=== PATIENT | female | born 1975 | race Caucasian/White ===

== ENCOUNTER 2022-01-13 | Inpatient (IN) | payer MEDICAID, SELFPAY ==
[2022-01-13] VITALS (45 sets, daily range): BP systolic 92–128; BP diastolic 67–103; PULSE 64–121; RESP 14–27; TEMP 35.8–37.8; O2SAT 92–99
--- NOTE | 2022-01-13 | RT.EKG_ITS ---
APPROVED REPORT Exam: Resting ECG Reason for Exam: chest pain Patient Location: E HR:109 bpm ECG Measurements Heart Rate 109 AXIS NJ 117 P 27 QRSd 87 QRS -35 QT 182 T 27 QTc 245 Conclusion Sinus tachycardia...rate> 99 Left axis deviation...QRS axis (-30,-90) Physician: no stemi, no significant st elevation or depressions
--- NOTE | 2022-01-13 00:15 | DI.RAD_ITS ---
Exam(s) XR PORTABLE CHEST AP EXAM: XR PORTABLE CHEST AP CLINICAL HISTORY: sob, fever, r/o pneumonia. TECHNIQUE: 2D digital imaging was performed. COMPARISON: CR CHEST 2 VIEWS PA,LAT from 09/17/2009 FINDINGS: LUNGS: Clear. No pleural abnormality seen. HEART: Normal. MEDIASTINUM: Normal. OTHER FINDINGS: None. IMPRESSION: No acute pulmonary findings. DATA REPOSITORY: RADIATION DOSE DELIVERED: Total DLP
[2022-01-13] MEDS: Normal Saline 1,000 ML 1000 ML IV (01:12)
[2022-01-13] MEDS: ACETAMINOPHEN 1,000 MG/100 ML BTL 400 MG IVPB (01:12)
[2022-01-13 01:19] LABS: Abs Immature Grans 0.06 10^3/uL (0.0-0.06); Absolute Eosinophil Count 0.03 10^3/uL (0.0-0.7); Absolute Monocyte Count 0.67 10^3/uL (0.1-0.8); Basophils % 0.3; Eosinophils % 0.2; HCT 39.9 % (36.0-46.0); HGB 13.6 g/dL (11.2-15.7); Immature Grans % 0.4; Lactate 1.5 mmol/L (0.6-1.4); Lymphocytes % 4.3; MCH 30.6 pg (27.0-33.0); MCHC 34.1 % (32.0-36.0); MCV 90 fL (80-95); MPV 9.8 fL (8.0-11.0); Monocytes % 4.5; Neutrophils % 90.3; Platelet Count 254 10^3/uL (130-400); RBC 4.44 10^6/uL (3.93-5.22); RDW 12.1 % (11.7-14.6); RDW-SD 39.8 fL; WBC 14.95 10^3/uL (4.4-10.8)
[2022-01-13 01:21] LABS: Absolute Basophil Count 0.04 10^3/uL (0.0-0.2); Absolute Lymphocyte Count 0.64 10^3/uL (1.2-3.4)
[2022-01-13 01:22] LABS: ESR 11 mm/hr (0-20)
--- NOTE | 2022-01-13 01:32 | W.ED.GENAD ---
Discharge Plan Disposition Patient Disposition: 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 Patient states that since this morning she has developed shortness of breath, mild chest tightness, mild cough. She has felt chilled and fatigued. She denies any vomiting or diarrhea. She denies any dysuria. She denies any neck pain or headache. She denies any IV drug use recently. She denies any other complaints at this time. She denies any recent long trips, surgeries or procedures. She denies any focal pain or lesions. Physical exam demonstrates clear lungs, no meningeal signs. No significant lesions. Initial temperature was normal, however on my palpation she felt warm, oral temperature was procured, she does demonstrate a fever. Slight murmurs auscultated on exam. Concern is for endocarditis, UTI, or pneumonia. Influenza is on the differential as well. We will evaluate for these concerning etiologies, monitor closely and reassess. Of note the patient did have a minimally engorged tick on her ear and also 1 on her abdomen which were removed. These were dog ticks and not deer ticks. However we will add a tick and Lyme panel. 3 AM Patient's laboratory work-up demonstrates an elevated white count at 14.9, moderate left shift, no bandemia. ESR is normal, but CRP is notably elevated. Lactate minimally high at 1.5. D-dimer normal. Potassium is 2.9, pending magnesium level. Renal function normal. Troponin normal. Procalcitonin is very high at 1.7. Unsuspectingly, the patient's COVID test is returned positive, influenza is negative. Patient certainly demonstrates a mixed picture. I did contact the lab and they were not able to differentiate as to the replication level that was noted on her COVID test, so it is challenging to ascertain if this is residual from her previous infection or a new infection. While this does somewhat obfuscate the clinical picture, with the patient's elevated procalcitonin, elevated CRP, and white count, in the setting of a slight murmur, and the history of endocarditis in the past, I am still concerned for bacteremia. Patient does have dental caries and does admit to mild tooth pain, which may have certainly been a seeded source of the infection. I do feel that it is indicated to treat the patient for bacteremia at this time. We will start broad-spectrum antibiotics with atypical coverage for vancomycin, Zosyn, and doxycycline. I do feel that getting a formal echo tomorrow to evaluate for vegetations is indicated. Patient's chest x-ray is negative for acute process, and clinically she does not appear to demonstrate evidence of severe COVID-pneumonia or severe COVID in general. Patient has been rehydrated. Her potassium is being corrected with IV potassium. We are still pending urinalysis. Discussed the case with the hospitalist Dr. Fernandes, he agrees with the assessment and plan. I have extensively reviewed the treatment plan with the patient. I have addressed all patient concerns at this time. I have also discussed the plan with the admitting physician and they agree with the current assessment and plan and have agreed to assume responsibility for the patient. All parties demonstrate verbal understanding and agreement with our assessment and plan at this time. The documentation in this chart was dictated using [employer] dictation software. Please excuse any dictation errors. FINDINGS: Lungs: Unremarkable. No consolidation. Pleural spaces: Unremarkable. No pleural effusion. No pneumothorax. Heart/Mediastinum: Unremarkable. No cardiomegaly. Bones/joints: Unremarkable. IMPRESSION: No acute findings. Thank you for allowing us to participate in the care of your patient. Dictated and Authenticated by: Dustin Ordoñez MD 01/13/2022 2:00 AM Eastern Time ([place] & [place]) HPI General Date/Time Provider Initiated Documentation: 01/13/22 00:00. 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 Patient states that since this morning she has developed shortness of breath, mild chest tightness, mild cough. She has felt chilled and fatigued. She denies any vomiting or diarrhea. She denies any dysuria. She denies any neck pain or headache. She denies any IV drug use recently. She denies any other complaints at this time. She denies any recent long trips, surgeries or procedures. She denies any focal pain or lesions. Related Data Home Medications Medication Instructions Recorded Confirmed amlodipine 5 mg tablet 5 mg PO BID 01/13/22 01/13/22 clonidine HCl 0.1 mg tablet 0.1 mg PO BID 01/13/22 01/13/22 Allergies Allergy/AdvReac Type Severity Reaction Status Date / Time latex Allergy Unverified 01/13/22 00:16 General Stated Complaint: Chest Pain MASON: 3 Review of Systems All systems reviewed & are unremarkable except as noted in HPI and below PFSH All Active Problems (Updated 01/13/22 @ 03:16 by Jarod Tam DO) Bacteremia (Acute) COVID-19 (Acute) Acute hypokalemia (Acute) Fever (Acute) Sepsis (Acute) Social History Smoking/Tobacco Use Status: Current every day Tobacco Type: cigarettes and e-cigarettes Smoking risk assessment performed?: Yes Drug use: Occasionally Substance use type: marijuana Do you feel safe at home: Yes Do you feel safe in your relationship?: Yes Exam Narrative Exam Narrative: 1.Const: Well-nourished, Well-developed, appearing stated age 2.Eyes: PERRL, no conjunctival injection, and symmetrical lids. 3.ENT: Atraumatic external nose and ears. Moist MM. Neck: Symmetric, trachea midline, No thyromegaly. Patient demonstrates good movement of cervical neck. There is no nuchal rigidity, no nuchal tenderness. Patient is able to flex the neck without any difficulty or significant pain. Negative Kernig's and Brudzinski sign. 4.CVS: +S1/S2, slight systolic murmurs auscultated. Peripheral pulses 2+ and equal in all extremities. Brisk capillary refill in all extremities. 5.RESP: Unlabored respiratory effort. Clear to auscultation bilaterally. No wheezes rales or rhonchi 6.GI: Soft, Nontender/Nondistended, No hepatosplenomegaly. No guarding or rebound. 7.MSK: Normocephalic/Atraumatic, Extremities w/o deformity or ttp No cyanosis or clubbing, Normal movement of all extremities. 8.Skin: Warm, Dry. No rashes or lesions. 2 ticks are present, minimally engorged, 1 on her anterior right abdomen, and one her ear. These were removed. No evidence of erythema migrans. 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 Sensation grossly intact, no focal neurologic deficits. 10.Psych: (AAO) x3. Appropriate mood and affect Course Vital Signs Vital signs: Vital Signs Temperature 37.8 C H 01/13/22 00:04 Pulse 115 H 01/13/22 00:04 Respiratory Rate 18 01/13/22 00:04 Blood Pressure 128/103 H 01/13/22 00:04 Pulse Oximetry 97 01/13/22 00:04 Temperature 37.8 C H 01/13/22 00:04 Temperature Source Oral 01/13/22 00:04 Pulse 115 H 01/13/22 00:04 Pulse 95 H 01/13/22 01:10 Respiratory Rate 20 01/13/22 01:10 Respiratory Effort 01/13/22 00:07 Respiratory Depth Normal 01/13/22 00:07 Respiratory Pattern Normal 01/13/22 00:07 Blood Pressure 128/103 H 01/13/22 00:04 Blood Pressure Position Sitting 01/13/22 00:04 Pulse Oximetry 95 01/13/22 00:20 Oxygen Delivery Method Room Air 01/13/22 00:04 Oxygen Flow Rate 0 01/13/22 00:04 Pain Level 7 01/13/22 00:04 Lab/Test Results Lab/Test Results: 01/13/22 01:10 Blood Blood Culture - Pending 01/13/22 00:17 Blood Blood Culture - Pending Laboratory Tests Range/Units 01/13/22 01/13/22 01/13/22 00:41 01:10 01:10 WBC (4.4-10.8) 10^3/uL 14.95 H RBC (3.93-5.22) 10^6/uL 4.44 Hgb (11.2-15.7) g/dL 13.6 Hct (36.0-46.0) % 39.9 MCV (80-95) fL 90 MCH (27.0-33.0) pg 30.6 MCHC (32.0-36.0) % 34.1 RDW (11.7-14.6) % 12.1 Plt Count (130-400) 10^3/uL 254 MPV (8.0-11.0) fL 9.8 Immature Gran % 0.4 Neutrophils % 90.3 Lymphocytes % 4.3 Monocytes % 4.5 Eosinophils % 0.2 Basophils % 0.3 Nucleated RBC % (0.0-0.3) % 0.0 Absolute Neutrophils (1.2-6.7) 10^3/uL 13.50 H Absolute Lymphocytes (1.2-3.4) 10^3/uL 0.64 L Absolute Monocytes (0.1-0.8) 10^3/uL 0.67 Absolute Eosinophils (0.0-0.7) 10^3/uL 0.03 Absolute Basophils (0.0-0.2) 10^3/uL 0.04 ESR Cancelled VBG Lactate (0.6-1.4) mmol/L 1.5 H Range/Units 01/13/22 01:10 WBC (4.4-10.8) 10^3/uL RBC (3.93-5.22) 10^6/uL Hgb (11.2-15.7) g/dL Hct (36.0-46.0) % MCV (80-95) fL MCH (27.0-33.0) pg MCHC (32.0-36.0) % RDW (11.7-14.6) % Plt Count (130-400) 10^3/uL MPV (8.0-11.0) fL Immature Gran % Neutrophils % Lymphocytes % Monocytes % Eosinophils % Basophils % Nucleated RBC % (0.0-0.3) % Absolute Neutrophils (1.2-6.7) 10^3/uL Absolute Lymphocytes (1.2-3.4) 10^3/uL Absolute Monocytes (0.1-0.8) 10^3/uL Absolute Eosinophils (0.0-0.7) 10^3/uL Absolute Basophils (0.0-0.2) 10^3/uL ESR 11 VBG Lactate (0.6-1.4) mmol/L Procedures Other Description: Candidate vein examined with linear array probe - confirmed collapsibility, lack of pulsatility, and proper anatomic location. Using aseptic technique, IV catheter inserted with flash of blood noted, flow of venous blood confirmed. Flushes easily and without pain. No hematoma or complications noted. IV secured. Patient tolerated well.
[2022-01-13 01:41] LABS: ALT 36 U/L (14-59); AST 28 U/L (15-37); Albumin 3.3 g/dL (3.4-5.0); Alkaline Phosphatase 93 U/L (46-116); Anion Gap 7.7 mmol/L (3-11); BUN 10 mg/dL (7-18); Bilirubin, Total 0.7 mg/dL (0.2-1.0); CO2 29.3 mmol/L (21.0-32.0); CREATININE 0.8 mg/dL (0.55-1.02); Calcium 8.9 mg/dL (8.5-10.1); Chloride 98 mmol/L (98-107); Glucose 167 mg/dL (74-106); Sodium 135 mmol/L (136-145); Total Protein 7.3 g/dL (6.4-8.2); Troponin I < 50 ng/L (<or=60)
[2022-01-13 01:42] LABS: Potassium 2.9 mmol/L (3.5-5.1)
[2022-01-13 01:42] LABS: Influenza A PCR Negative (Negative); Influenza B PCR Negative (Negative); RSV PCR Negative (Negative)
[2022-01-13 01:45] LABS: Source Nasopharynx
[2022-01-13 01:46] LABS: COVID-19 PCR Positive (Negative)
[2022-01-13 01:53] LABS: Procalcitonin 1.7 ng/mL
[2022-01-13 01:57] LABS: D-Dimer 399 ng/mlFEU (<500)
--- NOTE | 2022-01-13 02:00 | DI.VRAD_ITS ---
PROCEDURE INFORMATION: Exam: XR Chest Exam date and time: 01/13/2022 1:08 AM Age: 46 years old Clinical indication: Fever and shortness of breath; Patient HX: SOB, fever, R/O pneumonia TECHNIQUE: Imaging protocol: XR of the chest. Views: 1 view. COMPARISON: No relevant prior studies available. FINDINGS: Lungs: Unremarkable. No consolidation. Pleural spaces: Unremarkable. No pleural effusion. No pneumothorax. Heart/Mediastinum: Unremarkable. No cardiomegaly. Bones/joints: Unremarkable. IMPRESSION: No acute findings. Dictated and Authenticated by: Dustin Ordoñez MD. Ordering:VICENTE Olivera MD
[2022-01-13] MEDS: Potassium Chloride 20 MEQ TABCR 40 MEQ PO ×2 (02:11→10:49)
[2022-01-13] MEDS: POTASSIUM CHLORIDE 20 MEQ/100 ML BAG 50 MEQ IVPB (02:11)
[2022-01-13] MEDS: PIPERACILLIN/TAZO 4.5 GM in Normal Saline 100 ML IVPB (02:55)
--- NOTE | 2022-01-13 03:10 | HPE_ITS ---
Date of service: 01/13/22 Time of Service: 03:10 Assessment and Plan Assessment and plan (1) Fever: Status: Acute Assessment and plan: Fever. To begin with the positive COVID is likely incidental, and probably residual from prior recent infection, this does not appear to be presentation of acute COVID. Rather this is very likely bacterial infection, with avcute onset leukocytosis and elevated CRP and P{rocalcitonin. Source is not evident at present, but report of murmur (by ER) raises question of SBE (even if patient has been free of drugs, which she reliably appears to assert, the h/o prior SBE, as well as possible recent dental infection would place her at higher risk). Or there may be other unspecified infection brewing, including Lyme. I agree with current empiric antibiotic regimen pending culture results (will also add on tick panel). Hemodynamics satisfactory, no signs sepsis at present, but will hold Amlodipine until picture stable. Will also hold only next dose of Clonidine (for same reason) but will then resume to avoid any rebound. Hypokalemia noted, unknown etiology, will replace and track. History of Present Illness History of Present Illness Chief Complaint: fever and chills Narrative: 46 female with remote h/o IVDA, clean for 12 years, prior h/o SBE. Also COVID last month, minimally symptomatic, no treatment, and also had presumed dental infection approx 3 weeks ago, had few doses of antibiotics, then discomfort resolved. Comes in tonight with one day of fever and chills, had some chest tightness (left upper) along with some sense of palpitation, since resolved. Reported some cough to ER but now denies. Some aching in shoulders, some anorexia. In ER findings of note for fever, 1/6 systolic heart murmur, non-engorged dog tick on left ear; white count 14 with shift; K 2.9; negative CXR; lactate 1.5, CRP 4.8 and Procal 1.7; COVID is positive; urine pending collection. Patient given Vanco, Zosyn and Doxy. I was asked to evaluate for admission. Patient states she feels almost back to normal at present. wishes to go home but is agreeable to staying for further treatment. Review of Systems Narrative: per HPI PFSH All Active Problems Bacteremia (Acute) COVID-19 (Acute) Acute hypokalemia (Acute) Fever (Acute) Sepsis (Acute) Social History Smoking/Tobacco Use Status: Current every day Tobacco Type: cigarettes and e- cigarettes Smoking risk assessment performed?: Yes Drug use: Occasionally Substance use type: marijuana Do you feel safe at home: Yes Do you feel safe in your relationship?: Yes Meds Allergies and Home Medications Allergies Allergy/AdvReac Type Severity Reaction Status Date / Time latex Allergy Unverified 01/13/22 00:16 Home Medications Medication Instructions Recorded Confirmed Type amlodipine 5 mg tablet 5 mg PO BID 01/13/22 01/13/22 History clonidine HCl 0.1 mg tablet 0.1 mg PO BID 01/13/22 01/13/22 History Exam Narrative Exam Narrative: 126/77, 78, 37.8, 20, 96% RA. HEENT atraumatic; neck supple; lungs clear; heart RRR w/o MRG; abdomen soft and NT w/o HSM; extremities w/o edema; neuro Ox3, lucid, moves all 4s; skin no rash or stigmata SBE, non-engorged dog tick noted on abdomen Results Labs Result diagrams: 01/13/22 01:10 01/13/22 01:10 Labs: Laboratory Results - last 24 hr 01/13/22 01/13/22 01/13/22 00:41 00:41 01:10 WBC RBC Hgb Hct MCV MCH MCHC RDW Plt Count MPV Immature Gran % Neutrophils % Lymphocytes % Monocytes % Eosinophils % Basophils % Nucleated RBC % Absolute Neutrophils Absolute Lymphocytes Absolute Monocytes Absolute Eosinophils Absolute Basophils ESR Cancelled D-Dimer VBG Lactate Sodium 135 L Potassium 2.9 L Chloride 98 Carbon Dioxide 29.3 Anion Gap 7.7 BUN 10 Creatinine 0.8 Estimated GFR/1.73 m2 >= 60.00 Glucose 167 H Calcium 8.9 Total Bilirubin 0.7 AST 28 ALT 36 Alkaline Phosphatase 93 Troponin I < 50 C-Reactive Protein 4.80 H Total Protein 7.3 Albumin 3.3 L Procalcitonin COVID-19 Source Nasopharynx SARS-CoV-2 (PCR) Positive A Influenza Type A (PCR) Negative Influenza Type B (PCR) Negative RSV (PCR) Negative 01/13/22 01/13/22 01/13/22 01:10 01:10 01:10 WBC RBC Hgb Hct MCV MCH MCHC RDW Plt Count MPV Immature Gran % Neutrophils % Lymphocytes % Monocytes % Eosinophils % Basophils % Nucleated RBC % Absolute Neutrophils Absolute Lymphocytes Absolute Monocytes Absolute Eosinophils Absolute Basophils ESR D-Dimer 399 VBG Lactate 1.5 H Sodium Potassium Chloride Carbon Dioxide Anion Gap BUN Creatinine Estimated GFR/1.73 m2 Glucose Calcium Total Bilirubin AST ALT Alkaline Phosphatase Troponin I C-Reactive Protein Total Protein Albumin Procalcitonin 1.7 COVID-19 Source SARS-CoV-2 (PCR) Influenza Type A (PCR) Influenza Type B (PCR) RSV (PCR) 01/13/22 01/13/22 01:10 01:10 WBC 14.95 H RBC 4.44 Hgb 13.6 Hct 39.9 MCV 90 MCH 30.6 MCHC 34.1 RDW 12.1 Plt Count 254 MPV 9.8 Immature Gran % 0.4 Neutrophils % 90.3 Lymphocytes % 4.3 Monocytes % 4.5 Eosinophils % 0.2 Basophils % 0.3 Nucleated RBC % 0.0 Absolute Neutrophils 13.50 H Absolute Lymphocytes 0.64 L Absolute Monocytes 0.67 Absolute Eosinophils 0.03 Absolute Basophils 0.04 ESR 11 D-Dimer VBG Lactate Sodium Potassium Chloride Carbon Dioxide Anion Gap BUN Creatinine Estimated GFR/1.73 m2 Glucose Calcium Total Bilirubin AST ALT Alkaline Phosphatase Troponin I C-Reactive Protein Total Protein Albumin Procalcitonin COVID-19 Source SARS-CoV-2 (PCR) Influenza Type A (PCR) Influenza Type B (PCR) RSV (PCR) Last Vital Signs Temp 37.8 C H 01/13/22 00:04 Pulse 115 H 01/13/22 00:04 Resp 20 01/13/22 01:10 BP 128/103 H 01/13/22 00:04 Pulse Ox 95 01/13/22 00:20
[2022-01-13] MEDS: DOXYCYCLINE 100 MG in Normal Saline 100 ML IVPB ×2 (03:41→15:31)
[2022-01-13 03:47] LABS: Bilirubin Negative (Negative); Blood Moderate (Negative); Clarity Clear (Clear); Glucose Negative (Negative); Ketones Negative (Negative); Leukocyte Esterase Negative (Negative); Nitrite Negative (Negative); Specific Gravity <= 1.005 (1.005-1.025); Urobilinogen 0.2 EU/dL (Up TO 0.2); pH 6.5 (5-8)
[2022-01-13 03:55] LABS: Magnesium 1.7 mg/dL (1.8-2.4)
[2022-01-13 03:56] LABS: Epithelial Cells Moderate HPF (Negative); WBC 0-2 HPF (0-5)
[2022-01-13 03:57] LABS: Bacteria Rare HPF (Negative); C & S Indicated? No; Casts Negative LPF (Negative); Crystals Negative HPF (Negative); Mucus Negative (Negative)
[2022-01-13 04:02] LABS: *AMPHETAMINES SCREEN URINE Positive (Negative); *BARBITURATES SCREEN URINE Negative (Negative); *BENZODIAZEPINES SCREEN URINE Negative (Negative); Cannabinoids THC Negative (Negative); Cocaine Screen,Urine Negative (Negative); METHADONE URINE SCREEN Negative (Negative); OPIATES URINE SCREEN Negative (Negative); Tricyclic Antidepressants Negative (Negative)
[2022-01-13 04:04] LABS: Troponin I < 50 ng/L (<or=60)
[2022-01-13] MEDS: VANCOMYCIN 1,500 MG in Normal Saline 250 ML 166.667 MG IVPB (06:06)
[2022-01-13 06:38] LABS: HCT 38.1 % (36.0-46.0); HGB 12.8 g/dL (11.2-15.7); MCH 30.6 pg (27.0-33.0); MCHC 33.6 % (32.0-36.0); MCV 91 fL (80-95); MPV 9.7 fL (8.0-11.0); Platelet Count 195 10^3/uL (130-400); RBC 4.18 10^6/uL (3.93-5.22); RDW 12.3 % (11.7-14.6); RDW-SD 41.1 fL; WBC 7.56 10^3/uL (4.4-10.8)
[2022-01-13 06:53] LABS: Anion Gap 6.1 mmol/L (3-11); BUN 9 mg/dL (7-18); CO2 27.9 mmol/L (21.0-32.0); CREATININE 0.7 mg/dL (0.55-1.02); Calcium 8.3 mg/dL (8.5-10.1); Chloride 106 mmol/L (98-107); Glucose 113 mg/dL (74-106); Potassium 3.2 mmol/L (3.5-5.1); Sodium 140 mmol/L (136-145)
[2022-01-13 08:13] LABS: Magnesium 1.8 mg/dL (1.8-2.4)
[2022-01-13] MEDS: PIPERACILLIN/TAZO 3.375 GM in Normal Saline 50 ML IVPB ×3 (08:37→20:43)
[2022-01-13 09:22] LABS: HCG Qual (Serum) Negative
--- NOTE | 2022-01-13 11:25 | PDOC.CMIN ---
- If Service Date Differs Date of service: 01/13/22 Time of Service: 11:25 Care Management Initial Assess REASON FOR HOSPITALIZATION:: fever PAST MEDICAL HISTORY/PAST SURGICAL HISTORY:: All Active Problems. Bacteremia (Acute). COVID-19 (Acute). Acute hypokalemia (Acute). Fever (Acute). Sepsis (Acute) PREVIOUS FUNCTIONAL STATUS/SOCIAL/FAMILY SUPPORTS:: Jeana lives in [place]. She is currently out of work, but plans to start a new job soon. She has a daughter who lives in out of state. She is independent with ADL's at baseline. CURRENT FUNCTIONAL STATUS:: CM was not able to meet with Jeana, as she was on Covid precautions today. Per RN, she has been asking to leave today, but encouraged by staff to remain, as per provider, it would be an AMA discharge if she chooses to leave today. She had an echo today, and her blood cultures are pending. She is currently receiving IV abx therapy, and although her WBC has normalized, the provider continues to seek the source of her fever. CM will continue to follow. ADVANCE DIRECTIVES:: Not on file. Has patient been provided with info about the portal/API?: Yes Did the patient sign up for the portal?: No CODE STATUS:: Full Code INSURANCE COVERAGE / FINANCIAL ISSUES:: [employer] CURRENT HOME/COMMUNITY SERVICES/EQUIPMENT:: no current services or equipment. PRIMARY CARE PHYSICIAN:: Steffi Waddell POTENTIAL DISCHARGE NEEDS:: Evaluations for further needs, follow up appointments. PATIENT/FAMILY EDUCATION NEEDS:: Review discharge instructions and limitations, discussion of self care needs including ask me three. ANTICIPATED BARRIERS TO DISCHARGE:: None identified. TRANSPORTATION:: Via private vehicle by family. PLAN:: Anticipate Jeana will return home once medically cleared. She will be driven home via private vehicle. She will follow up with her PCP and discharge plan of care. CM will continue to follow.
[2022-01-13] MEDS: Normal Saline Flush 10 ML SYR IVP ×2 (14:06→20:45)
[2022-01-13] MEDS: VANCOMYCIN/WATER (PEG) 1.25 GM/250 ML BAG IV (18:06)
--- NOTE | 2022-01-13 18:35 | NUR.NOTE ---
Nursing Note: Patient states she starts work tomorrow for her new job and needs to be there by 7AM tomorrow morning. Patient is aware she will not be able to be discharged by then and will only be able to leave if she goes AMA. Patient understands treatment and discharge plan but states she can not miss work. Advised patient she should atleast stay over night and see how things look in the morning. Patient will still receive antibiotics overnight as long as she stays.
[2022-01-13] MEDS: Acetaminophen 325 MG TAB 650 MG PO (20:45)
[2022-01-14] MEDS: PIPERACILLIN/TAZO 3.375 GM in Normal Saline 50 ML IVPB ×4 (01:12→21:28)
[2022-01-14] MEDS: Normal Saline Flush 10 ML SYR IVP ×5 (01:12→19:24)
[2022-01-14] MEDS: VANCOMYCIN/WATER (PEG) 1.25 GM/250 ML BAG IV (02:17)
[2022-01-14 03:17] VITALS: BP 139/85; PULSE 81; RESP 18; TEMP 36.6; O2SAT 98
[2022-01-14] MEDS: DOXYCYCLINE 100 MG in Normal Saline 100 ML IVPB ×2 (04:22→15:27)
[2022-01-14 07:00] LABS: Anion Gap 7.7 mmol/L (3-11); BUN 7 mg/dL (7-18); C-Reactive Protein 8.48 mg/dL (0.0-0.3); CO2 25.3 mmol/L (21.0-32.0); CREATININE 0.9 mg/dL (0.55-1.02); Calcium 7.9 mg/dL (8.5-10.1); Chloride 105 mmol/L (98-107); Glucose 141 mg/dL (74-106); Magnesium 1.6 mg/dL (1.8-2.4); Potassium 3.9 mmol/L (3.5-5.1); Sodium 138 mmol/L (136-145)
[2022-01-14 07:47] VITALS: BP 135/97; PULSE 82; RESP 18; TEMP 37; O2SAT 94
[2022-01-14] MEDS: Buprenorphine 2 MG SUBLINGUAL TABLET 4 MG SL (07:51)
--- NOTE | 2022-01-14 10:11 | CMPROGNOTE_ITS ---
- If Service Date Differs Date of service: 01/14/22 Time of Service: 10:11 Care Management Progress Note S/O: Jeana was sitting up in bed when CM met with her. She had a male visitor sitting with her, who did not engage in conversation. Jeana stated that she is very anxious about remaining at the hospital, and is hoping to be discharged soon. She stated that she really wants to get some fresh air outside. She has nicotine replacement, that her RN was refilling for her while CM was in the room. 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 CM stated that per report, her repeat blood cultures are pending, and once they are resulted, her plan will be created, depending on those results. CM will continue to follow. A: Jeana is a 46 year old female admitted to [facility] on 01/13/22 with a fever. P: Anticipate Jeana will return home once medically cleared. She will be driven home via private vehicle. She will follow up with her PCP and discharge plan of care. CM will continue to follow.
[2022-01-14 10:24] LABS: Abs Immature Grans 0.02 10^3/uL (0.0-0.06); Absolute Basophil Count 0.05 10^3/uL (0.0-0.2); Absolute Eosinophil Count 0.24 10^3/uL (0.0-0.7); Absolute Lymphocyte Count 1.56 10^3/uL (1.2-3.4); Absolute Neutrophil Count 5.31 10^3/uL (1.2-6.7); Basophils % 0.6; Eosinophils % 3.1; HCT 37.9 % (36.0-46.0); HGB 13.2 g/dL (11.2-15.7); Immature Grans % 0.3; Lymphocytes % 20.1; MCH 31.6 pg (27.0-33.0); MCHC 34.8 % (32.0-36.0); MCV 91 fL (80-95); MPV 10.3 fL (8.0-11.0); Monocytes % 7.7; Neutrophils % 68.2; Platelet Count 212 10^3/uL (130-400); RBC 4.18 10^6/uL (3.93-5.22); RDW 12.5 % (11.7-14.6); RDW-SD 41.6 fL; WBC 7.78 10^3/uL (4.4-10.8)
[2022-01-14 10:41] LABS: Vancomycin, Trough 16.8 ug/mL (10.0-20.0)
[2022-01-14 11:08] LABS: Lyme Ab w Rflx to Lyme Confirm Negative (Negative)
[2022-01-14] MEDS: VANCOMYCIN/WATER (PEG) 1 GM/200 ML BAG IV ×2 (11:48→19:24)
[2022-01-14] MEDS: MAGNESIUM SULFATE 2 GM/50 ML BAG IVPB (11:49)
[2022-01-14 16:08] VITALS: BP 144/97; PULSE 82; RESP 18; TEMP 36.7; O2SAT 94
--- NOTE | 2022-01-14 17:52 | W.PM.PROGNOT ---
Date of Service Date of service: 01/14/22 Time of Service: 15:00 Assessment and Plan Assessment and plan (1) Bacteremia: Status: Acute Assessment and plan: GPCs in 2/4 bottles. Repeat blood cultures pending. Continue vanco/zosyn/doxycycline (doxy for tick bite). ?contaminant. Echo without evidence of endocarditis. Trend CRP, procalcitonin. (2) Dental infection: Status: Acute Assessment and plan: Should be adequately covered with zosyn. (3) Tick bite: Status: Acute Assessment and plan: Negative for Lyme disease. Await remainder of the tick studies. (4) Hypomagnesemia: Status: Acute Assessment and plan: Repleted. Recheck in am. (5) Lab test positive for detection of COVID-19 virus: Status: Resolved Assessment and plan: Clinical illness 3 weeks ago. No longer requiring precautions. (6) DVT prophylaxis: Status: Acute Assessment and plan: sc enoxaparin (7) Discharge planning issues: Status: Acute Assessment and plan: Full code Subjective Subjective Interval history since last seen: Ms Dhaliwal states that she is actually feeling better today. She has been afebrile. She states that she has pulled off another tick off herself today - she recalls sitting in the grass and that's when she thinks the ticks got a chance to attach themselves. She denies dizziness, chest pain, shortness of breath, nausea. She denies having any metal/implants in her. She does endorse having a dental infection x 3 weeks. 2/4 blood cultures done on admission are growing GPCs. Exam Narrative Exam Narrative: General: Pleasant middle-aged female who is tearful, A&Ox3, cooperative, does not look sick HEENT: EOMI, MMM Heart: RRR, S3 gallop Lungs: CTAB Abdomen: soft, nontender, nondistended Extremities: no edmea BLEs, no stigmata of endocarditis Objective Last Vital Signs Temp 36.7 C 01/14/22 16:08 Pulse 82 01/14/22 16:08 Resp 18 01/14/22 16:08 BP 144/97 H 01/14/22 16:08 Pulse Ox 94 01/14/22 16:08 Laboratory Results - last 24 hr 01/13/22 01/14/22 01/14/22 01:10 06:15 10:05 WBC RBC Hgb Hct MCV MCH MCHC RDW Plt Count MPV Immature Gran % Neutrophils % Lymphocytes % Monocytes % Eosinophils % Basophils % Nucleated RBC % Absolute Neutrophils Absolute Lymphocytes Absolute Monocytes Absolute Eosinophils Absolute Basophils Sodium 138 Potassium 3.9 Chloride 105 Carbon Dioxide 25.3 Anion Gap 7.7 BUN 7 Creatinine 0.9 Estimated GFR/1.73 m2 >= 60.00 Glucose 141 H Calcium 7.9 L Magnesium 1.6 L C-Reactive Protein 8.48 H Vancomycin Trough 16.8 Lyme Disease Antibody Negative 01/14/22 10:05 WBC 7.78 RBC 4.18 Hgb 13.2 Hct 37.9 MCV 91 MCH 31.6 MCHC 34.8 D RDW 12.5 Plt Count 212 MPV 10.3 Immature Gran % 0.3 Neutrophils % 68.2 Lymphocytes % 20.1 Monocytes % 7.7 Eosinophils % 3.1 Basophils % 0.6 Nucleated RBC % 0.0 Absolute Neutrophils 5.31 Absolute Lymphocytes 1.56 Absolute Monocytes 0.60 Absolute Eosinophils 0.24 Absolute Basophils 0.05 Sodium Potassium Chloride Carbon Dioxide Anion Gap BUN Creatinine Estimated GFR/1.73 m2 Glucose Calcium Magnesium C-Reactive Protein Vancomycin Trough Lyme Disease Antibody
[2022-01-14 22:45] VITALS: BP 142/89; PULSE 78; RESP 18; TEMP 36.5; O2SAT 97
[2022-01-14] MEDS: Melatonin 3 MG TAB 9 MG PO (23:14)
[2022-01-14 23:51] LABS: Anaplasma phagocytophilum Negative (Negative); B. miyamotoi PCR Negative (Negative); Babesia divergens/MO-1 Negative (Negative); Babesia duncani Negative (Negative); Babesia microti Negative (Negative); Ehrlichia chaffeensis Negative (Negative); Ehrlichia ewingii/canis Negative (Negative); Ehrlichia muris eauclairensis Negative (Negative)
[2022-01-15] MEDS: VANCOMYCIN/WATER (PEG) 1 GM/200 ML BAG IV ×3 (04:21→21:06)
[2022-01-15] MEDS: DOXYCYCLINE 100 MG in Normal Saline 100 ML IVPB (04:22)
[2022-01-15] MEDS: PIPERACILLIN/TAZO 3.375 GM in Normal Saline 50 ML IVPB ×2 (05:33→10:08)
[2022-01-15 07:07] LABS: Abs Immature Grans 0.02 10^3/uL (0.0-0.06); Absolute Basophil Count 0.06 10^3/uL (0.0-0.2); Absolute Eosinophil Count 0.33 10^3/uL (0.0-0.7); Absolute Monocyte Count 0.64 10^3/uL (0.1-0.8); Absolute Neutrophil Count 3.89 10^3/uL (1.2-6.7); Anion Gap 6.6 mmol/L (3-11); BUN 8 mg/dL (7-18); Basophils % 0.8; CO2 27.4 mmol/L (21.0-32.0); CREATININE 0.8 mg/dL (0.55-1.02); Calcium 8.4 mg/dL (8.5-10.1); Chloride 105 mmol/L (98-107); Eosinophils % 4.4; Glucose 114 mg/dL (74-106); HCT 40.9 % (36.0-46.0); HGB 13.6 g/dL (11.2-15.7); Immature Grans % 0.3; Lymphocytes % 34.5; MCH 30.4 pg (27.0-33.0); MCV 92 fL (80-95); Monocytes % 8.5; Neutrophils % 51.5; Platelet Count 239 10^3/uL (130-400); Potassium 3.6 mmol/L (3.5-5.1); RBC 4.47 10^6/uL (3.93-5.22); RDW 12.3 % (11.7-14.6); RDW-SD 41.4 fL; Sodium 139 mmol/L (136-145); WBC 7.54 10^3/uL (4.4-10.8)
[2022-01-15 07:08] LABS: MCHC 33.3 % (32.0-36.0)
[2022-01-15 07:13] LABS: C-Reactive Protein 3.15 mg/dL (0.0-0.3); Magnesium 2.2 mg/dL (1.8-2.4)
[2022-01-15 07:31] LABS: Procalcitonin 0.6 ng/mL
[2022-01-15] MEDS: Enoxaparin 40 MG/0.4 ML SYR SC (07:43)
[2022-01-15] MEDS: Buprenorphine 2 MG SUBLINGUAL TABLET 4 MG SL (07:44)
[2022-01-15] MEDS: Normal Saline Flush 10 ML SYR IVP (07:47)
[2022-01-15 08:18] VITALS: BP 117/83; PULSE 71; RESP 17; TEMP 36.6; O2SAT 93
[2022-01-15 11:19] LABS: Vancomycin, Trough 15.8 ug/mL (10.0-20.0)
[2022-01-15 12:10] VITALS: BP 129/62; PULSE 78; RESP 17; TEMP 36.6; O2SAT 91
--- NOTE | 2022-01-15 13:08 | CMPROGNOTE_ITS ---
- If Service Date Differs Date of service: 01/15/22 Time of Service: 13:08 Care Management Progress Note S/O: Jeana was sitting up in bed when CM met with her. Her brother was visiting at the time and Jeana explained that he is a strong source of support for her. Jeana stated that she is very anxious about remaining at the hospital, and is hoping to be discharged soon. She stated that she really needs to leave to start her new job. She informed her nurse that she would leave AMA by 3pm if she was not discharged. She has an important meeting at 4 pm that she cannot miss. While GEMA was meeting with Jeana, Dr. Hua joined the conversation. She explained to Jeana that it is unlikely that the organism in her blood is a contaminant and therefore would need to be treated. Antibiotic susceptibilities will not be available until tomorrow. Dr. Hua explained that if left untreated, she could potentially from the infection. Jeana was tearful but with encouragement from her brother agreed to stay. GEMA contacted her chief security and safety officer and the [employer] field coordinator to inform them of the need for Jeana to remain hospitalized. Both assured CM that Jeana was all set and would not be penalized in any way because of her need for hospitalization. Jeana expressed relief when informed about the 2 conversations. A: Jeana is a 46 year old female admitted to [facility] on 01/13/22 with a fever. P: Anticipate Jeana will return home once medically cleared. She will be driven home via private vehicle. She will follow up with her PCP and discharge plan of care. CM will continue to support Jeana and her discharge planning concerns.
--- NOTE | 2022-01-15 14:25 | W.PM.PROGNOT ---
Date of Service Date of service: 01/15/22 Time of Service: 13:25 Assessment and Plan Assessment and plan (1) Bacteremia: Status: Acute Assessment and plan: GPCs in 2/4 bottles on admission: they are discordant bacteria, but one of them appears to be staph aureus and the other one is harder to speciate - more information to come from microbiology. Repeat blood cultures pending. Continue vanco for GPC bacteremia, doxycycline (for tick bite), ok to d/c zosyn and switch to augmentin (dental infection). Echo without evidence of endocarditis. Trend CRP, procalcitonin (both improving). (2) Dental infection: Status: Acute Assessment and plan: Change zosyn to augmentin. (3) Tick bite: Status: Acute Assessment and plan: Negative for Lyme disease by studies (as well as for the other tick illnesses), but clinically has a high probability of not having positive studies yet as the patient pulled ticks off of herself when already here in the hospital. I think doxycycline should be continued, but switched to PO to complete a 2 week course. (4) Hypomagnesemia: Status: Resolved Assessment and plan: Recheck in am. (5) Lab test positive for detection of COVID-19 virus: Status: Resolved Assessment and plan: Clinical illness 3 weeks ago. No longer requiring precautions. (6) DVT prophylaxis: Status: Acute Assessment and plan: sc enoxaparin (7) Discharge planning issues: Status: Acute Assessment and plan: Full code Continues to require hospitalization Subjective Subjective Interval history since last seen: Ms Dhaliwal states that she is feeling well. She denies dizziness, chest pain, shortness of breath, nausea. I discussed her blood culture results with microbiology. Two discordant bacteria are growing in her original blood cultures, and one of them appears to be staph aureus, while the other one is harder to speciate. I discussed this with the patient. I asked her to stay until we have information about sensitivities. She was very upset - she would miss start of her work, possibly her court date, and needed us to talk to her PO. Exam Narrative Exam Narrative: General: Pleasant middle-aged female who is anxious when talking about the fact that she is not ready for discharge; A&Ox3, cooperative, does not look sick HEENT: EOMI, MMM Heart: RRR, S3 gallop Lungs: CTAB Abdomen: soft, nontender, nondistended Extremities: no edmea BLEs, no stigmata of endocarditis Objective Last Vital Signs Temp 36.6 C 01/15/22 12:10 Pulse 78 01/15/22 12:10 Resp 17 01/15/22 12:10 BP 129/62 01/15/22 12:10 Pulse Ox 91 L 01/15/22 12:10 Laboratory Results - last 24 hr 01/13/22 01/15/22 01/15/22 01:10 06:19 06:19 WBC RBC Hgb Hct MCV MCH MCHC RDW Plt Count MPV Immature Gran % Neutrophils % Lymphocytes % Monocytes % Eosinophils % Basophils % Nucleated RBC % Absolute Neutrophils Absolute Lymphocytes Absolute Monocytes Absolute Eosinophils Absolute Basophils Sodium Potassium Chloride Carbon Dioxide Anion Gap BUN Creatinine Estimated GFR/1.73 m2 Glucose Calcium Magnesium 2.2 C-Reactive Protein 3.15 H Procalcitonin 0.6 Vancomycin Trough A.phagocytophil DNA PCR Negative B. divergens/MO-1 PCR Negative Babesia duncani (PCR) Negative Babesia microti DNA PCR Negative Borrelia (PCR) Negative E.chaffeensis DNA (PCR) Negative E.ewingii/canis DNA PCR Negative E. muris-like DNA (PCR) Negative 01/15/22 01/15/22 01/15/22 06:19 06:19 10:50 WBC 7.54 RBC 4.47 Hgb 13.6 Hct 40.9 MCV 92 MCH 30.4 MCHC 33.3 D RDW 12.3 Plt Count 239 MPV 10.0 Immature Gran % 0.3 Neutrophils % 51.5 Lymphocytes % 34.5 Monocytes % 8.5 Eosinophils % 4.4 Basophils % 0.8 Nucleated RBC % 0.0 Absolute Neutrophils 3.89 Absolute Lymphocytes 2.60 Absolute Monocytes 0.64 Absolute Eosinophils 0.33 Absolute Basophils 0.06 Sodium 139 Potassium 3.6 Chloride 105 Carbon Dioxide 27.4 Anion Gap 6.6 BUN 8 Creatinine 0.8 Estimated GFR/1.73 m2 >= 60.00 Glucose 114 H Calcium 8.4 L Magnesium C-Reactive Protein Procalcitonin Vancomycin Trough 15.8 A.phagocytophil DNA PCR B. divergens/MO-1 PCR Babesia duncani (PCR) Babesia microti DNA PCR Borrelia (PCR) E.chaffeensis DNA (PCR) E.ewingii/canis DNA PCR E. muris-like DNA (PCR)
[2022-01-15 14:41] VITALS: O2SAT 95
[2022-01-15 15:00] VITALS: BP 127/88; PULSE 83; RESP 21; TEMP 37; O2SAT 98
[2022-01-15] MEDS: Amoxicillin 875/Clav. 125 TAB PO (21:06)
[2022-01-15] MEDS: Doxycycline Hyclate 100 MG CAP PO (21:06)
[2022-01-15] MEDS: Melatonin 3 MG TAB 9 MG PO (21:06)
[2022-01-16 00:30] VITALS: BP 137/88; PULSE 78; RESP 18; TEMP 36.8; O2SAT 98
[2022-01-16] MEDS: VANCOMYCIN/WATER (PEG) 1 GM/200 ML BAG IV (04:30)
[2022-01-16 07:26] VITALS: BP 124/77; PULSE 68; RESP 16; TEMP 35.9; O2SAT 96
[2022-01-16 07:33] LABS: Abs Immature Grans 0.03 10^3/uL (0.0-0.06); Absolute Basophil Count 0.05 10^3/uL (0.0-0.2); Absolute Eosinophil Count 0.29 10^3/uL (0.0-0.7); Absolute Lymphocyte Count 2.81 10^3/uL (1.2-3.4); Absolute Monocyte Count 0.68 10^3/uL (0.1-0.8); Absolute Neutrophil Count 5.62 10^3/uL (1.2-6.7); Basophils % 0.5; Eosinophils % 3.1; HCT 41.1 % (36.0-46.0); HGB 13.7 g/dL (11.2-15.7); Immature Grans % 0.3; Lymphocytes % 29.6; MCH 30.1 pg (27.0-33.0); MCHC 33.3 % (32.0-36.0); MCV 90 fL (80-95); MPV 9.7 fL (8.0-11.0); Monocytes % 7.2; Neutrophils % 59.3; Platelet Count 295 10^3/uL (130-400); RBC 4.55 10^6/uL (3.93-5.22); RDW 12.1 % (11.7-14.6); RDW-SD 39.9 fL; WBC 9.48 10^3/uL (4.4-10.8)
[2022-01-16 07:45] LABS: Anion Gap 8.7 mmol/L (3-11); BUN 10 mg/dL (7-18); CO2 25.3 mmol/L (21.0-32.0); CREATININE 0.7 mg/dL (0.55-1.02); Calcium 8.5 mg/dL (8.5-10.1); Chloride 106 mmol/L (98-107); Glucose 120 mg/dL (74-106); Magnesium 1.8 mg/dL (1.8-2.4); Potassium 3.7 mmol/L (3.5-5.1); Sodium 140 mmol/L (136-145)
[2022-01-16] MEDS: Buprenorphine 2 MG SUBLINGUAL TABLET 4 MG SL (08:05)
[2022-01-16] MEDS: Doxycycline Hyclate 100 MG CAP PO ×2 (08:06→20:33)
[2022-01-16] MEDS: Normal Saline Flush 10 ML SYR IVP ×6 (08:06→23:43)
[2022-01-16] MEDS: Enoxaparin 40 MG/0.4 ML SYR SC (08:06)
--- NOTE | 2022-01-16 08:48 | CMPROGNOTE_ITS ---
- If Service Date Differs Date of service: 01/16/22 Time of Service: 08:48 Care Management Progress Note S/O: Jeana was sitting up in bed when CM met with her. She expressed concern about the need to remain in the hospital for 4 weeks of IV antibiotics. As she explained to CM yesterday, she needs to work in order to be able to move back to [place] where her family lives, including her children. She was very teary at times. Jeana did agree to do home infusion therapy if approved by her insurance. Orders were sent to [facility] by and approval was received. She will discharge home tomorrow morning around 9 am with family transport. Her antibiotics are scheduled to arrive by [facility] at 10:30 am and Home health will arrive in time to administer her 2pm dose of Cefazolin. A: Jeana is a 46 year old female admitted to [facility] on 01/13/22 with a fever. P: Jeana will return home tomorrow with new home health services for IVAB therapy through [facility]. She will follow up with her new PCP and transport with family. She will follow up with her PCP and discharge plan of care. CM will continue to support Jeana and her discharge planning concerns.
--- NOTE | 2022-01-16 11:59 | DSE_ITS ---
Date of service: 01/17/22 Time of Service: 08:05 DS: Diagnosis Discharge Diagnosis (1) Bacteremia: Status: Acute Asessment and Plan: case was discussed with ID at [facility]. will need 4 weeks of IV antibiotics. blood cultures negative since January 14, 2022. discussed antibiotic choice and oxacillin most preferred, cefazolin an alternative. if she will not stay for IV antibiotics and chooses to leave AMA, bactrim DS could be used but not ideal. (2) Dental infection: Status: Acute (3) Tick bite: Status: Acute Asessment and Plan: Dr Hua recommends treatment with doxycycline for 2 weeks. multiple ticks removed in the ED (4) Hypomagnesemia: Status: Resolved (5) Lab test positive for detection of COVID-19 virus: Status: Resolved Asessment and Plan: 3 weeks prior to hospitalization no respiratory symptoms standard precautions. Discharge Plan Disposition Patient Disposition: HOME W/HOME HEALTH SERVICE Condition: Good Discharge Details Reason For Visit: Fever Admit Date/Time: 01/13/22 03:30 Admit Provider: Parker Fernandes Attending Provider: Parker Fernandes Primary Care Provider: Steffi Waddell Home Meds and New Rx's Prescriptions: New cefazolin 2 gram recon soln 2 g IV Q8H Qty: 80 0RF doxycycline hyclate 100 mg Capsule 100 mg PO BID Qty: 24 0RF buprenorphine HCl 2 mg Tablet, Sublingual 4 mg sublingual DAILY Qty: 0 0RF buprenorphine HCl 8 mg Tablet, Sublingual 8 mg sublingual DAILY Qty: 0 0RF Continued amlodipine 5 mg Tablet 5 mg PO BID No Action clonidine HCl 0.1 mg Tablet 0.1 mg PO BID Discharge Instructions Instructions: Fever in Adults (ED), Bacteremia (DC) Additional Instructions: continue subutex per [facility]. last dose letter will be provided. continue antibiotics as directed even if you feel better. return sooner for new or worsening symptoms Stand Alone Forms: Nursing Discharge Form Referrals: HUAN ARTEAGA NP [ [facility]FF PHYSICIAN] - 01/28/22 2:20 pm Activity:: Activity as Tolerated Equipment/Supplies:: No Equipment Needed Diet:: As Tolerated Discharge Orders Discharge Orders: Discharge Order (Routine); Ordered 01/17/22 Ordered By: Caleb Hitchcock Discharge Data Discharge Date/Time-TO BE ENTERED AT DEPARTURE: 01/17/22 09:08 DS: Summary Time Spent with Patient providing and/or coordinating discharge services: Greater than 30 minutes Status at Discharge Functional status at discharge: independent ambulation Overall status at discharge: patient is not back to baseline Mental Status: mental status grossly normal Speech and Movement: speech and movement normal Mood: congruent mood Affect: normal affect Exam Const General: cooperative, healthy appearing, comfortable and no acute distress Nutritional Appearance: average body habitus Orientation: alert, awake and oriented x3 HENMT Head: normal to inspection, normocephalic and atraumatic Mouth: oral mucosae normal Chest Chest: normal inspection of the chest Resp Effort & Inspection: normal respiratory effort Cardio Rate: regular rate Rhythm: regular rhythm Heart Sounds: no murmurs Neuro General: patient alert, patient awake and patient oriented x3 Extrem General: normal to inspection, full ROM and no pedal edema Psych Appearance: grossly normal Mental Status: mental status grossly normal Speech and Movement: speech and movement normal Mood: congruent mood Affect: normal affect Attitude: cooperative Thought Process: normal Thought Content: normal Insight: insight good Judgment: judgment good DS: Data Vitals/I&O Vitals and I&O: Vital Signs Temperature 35.9 C L 01/16/22 07:26 Temperature Source Tympanic 01/16/22 07:26 Pulse 68 01/16/22 07:26 Pulse Rhythm Regular 01/16/22 11:05 Pulse 79 01/13/22 04:10 Respiratory Rate 16 01/16/22 07:26 Respiratory Effort Non-Labored 01/16/22 11:05 Respiratory Depth Normal 01/16/22 11:05 Respiratory Pattern Normal 01/16/22 11:05 Blood Pressure 124/77 01/16/22 07:26 Blood Pressure Mean 80 01/13/22 04:00 Blood Pressure Position Sitting 01/13/22 00:04 Pulse Oximetry 96 01/16/22 07:26 Oxygen Delivery Method Room Air 01/16/22 07:26 Oxygen Flow Rate 0 01/16/22 07:26 Pain Level 0 01/16/22 07:26 Intake & Output 01/15/22 01/15/22 01/16/22 11:59 23:59 11:59 Intake Total 650 / 1345 695 / 1345 250 / 250 Balance 650 / 1345 695 / 1345 250 / 250 Intake: IV 400 / 820 420 / 820 250 / 250 Oral 250 / 525 275 / 525 Other: Urine Appearance Clear Clear Clear Comment pT goes to the bathroom independently. pT goes to bathroom independently. pT uses bathroom independently. Voiding Methods Toilet Toilet Toilet Data Completed and Pending Labs on day of discharge: Labs from last 24 hours 01/16/22 01/16/22 07:20 07:20 WBC 9.48 RBC 4.55 Hgb 13.7 Hct 41.1 MCV 90 MCH 30.1 MCHC 33.3 RDW 12.1 Plt Count 295 MPV 9.7 Immature Gran % 0.3 Neutrophils % 59.3 Lymphocytes % 29.6 Monocytes % 7.2 Eosinophils % 3.1 Basophils % 0.5 Nucleated RBC % 0.0 Absolute Neutrophils 5.62 Absolute Lymphocytes 2.81 Absolute Monocytes 0.68 Absolute Eosinophils 0.29 Absolute Basophils 0.05 Sodium 140 Potassium 3.7 Chloride 106 Carbon Dioxide 25.3 Anion Gap 8.7 BUN 10 Creatinine 0.7 Estimated GFR/1.73 m2 >= 60.00 Glucose 120 H Calcium 8.5 Magnesium 1.8 Preliminary micro results at discharge 01/13/22 01:10 Blood Culture - Preliminary Blood NO GROWTH 72 HOURS 01/14/22 10:40 Blood Culture - Preliminary Blood NO GROWTH 24 HOURS 01/14/22 10:05 Blood Culture - Preliminary Blood NO GROWTH 24 HOURS PFSH All Active Problems (Updated 01/15/22 @ 14:35 by Carrie Hua MD) Dental infection (Acute) Discharge planning issues (Acute) DVT prophylaxis (Acute) Tick bite (Acute) Bacteremia (Acute) COVID-19 (Acute) Acute hypokalemia (Acute) Fever (Acute) Sepsis (Acute) Social History Smoking/Tobacco Use Status: Current every day Tobacco Type: cigarettes and e- cigarettes Smoking risk assessment performed?: Yes Drug use: Occasionally Substance use type: marijuana Do you feel safe at home: Yes Do you feel safe in your relationship?: Yes
[2022-01-16 15:03] VITALS: BP 161/93; PULSE 70; RESP 18; TEMP 36.5; O2SAT 95
[2022-01-16 20:07] VITALS: BP 134/96; PULSE 78; RESP 16; TEMP 37; O2SAT 100
[2022-01-16] MEDS: Melatonin 3 MG TAB 9 MG PO (20:33)
[2022-01-16 22:00] VITALS: BP 145/100; PULSE 83; RESP 16; O2SAT 98
[2022-01-16 22:08] VITALS: BP 152/90; RESP 16; TEMP 36.5
[2022-01-17] MEDS: ceFAZolin 2 GM/50 ML BAG IVPB (06:09)
[2022-01-17 07:23] LABS: Anion Gap 10.4 mmol/L (3-11); BUN 9 mg/dL (7-18); C-Reactive Protein 0.68 mg/dL (0.0-0.3); CO2 24.6 mmol/L (21.0-32.0); CREATININE 0.7 mg/dL (0.55-1.02); Calcium 8.9 mg/dL (8.5-10.1); Chloride 106 mmol/L (98-107); Glucose 114 mg/dL (74-106); Magnesium 1.8 mg/dL (1.8-2.4); Potassium 3.4 mmol/L (3.5-5.1); Sodium 141 mmol/L (136-145)
[2022-01-17 07:53] LABS: Procalcitonin 0.2 ng/mL
--- NOTE | 2022-01-17 07:54 | PDOC.HHF2F ---
Home Health Certification Home Health Certification: 1. Encounter Date and Reason I certify that Jeana Dhaliwal was seen by Caleb Hitchcock MD on 01/17/22 and that I had a [id number] encounter with this patient that meets the physician face to face encounter requirements. 2. Clinical Findings Supporting Skilled Need and Homebound Status I certify that home health services are medically necessary, include either intermittent long term and/or physical/speech therapy, and that this patient is homebound in that absences from the home require considerable and taxing effort and are infrequent or of short duration, or are attributable to the need to receive medical care. [X] (a) Attached documentation from encounter provides clinical findings supporting skilled need and homebound status (including what assistance patient requires to leave the home). The encounter with the patient was in whole, or in part, for the following medical condition, which is the primary reason for home health care: Fever Snf: New home medication; IV antibiotic management. Physical Therapy: Speech Therapy: Homebound: Require Requires assistance for safe ambulation outside of the home. 3. Certification and Authentication I certify that I composed the above information based on my clinical judgement relating to this patient's medical condition and, if applicable, clinical findings communicated to me by the NPP or inpatient physician who performed the Home Health Referral. All further orders will be obtained through Steffi Waddell (Community Based Physician - PCP)
[2022-01-17] MEDS: Doxycycline Hyclate 100 MG CAP PO (08:29)
[2022-01-17] MEDS: Enoxaparin 40 MG/0.4 ML SYR SC (08:30)
[2022-01-17] MEDS: Normal Saline Flush 10 ML SYR IVP (08:31)
[2022-01-17] MEDS: Buprenorphine 2 MG SUBLINGUAL TABLET 4 MG SL (08:31)
== END 2022-01-17 09:08 | disposition home health service (06) | DRG 871 ==
LOC: ER 04:22 → MS 04:27
PROVIDERS: Internal Medicine; Admitting Provider General Practice; Emergency Provider Student in an Organized Health Care Education/Training Program; PCP Family Medicine; Visit Provider General Practice
DX: R78.81 Bacteremia (principal); U07.1 COVID-19; S30.861A Insect bite (nonvenomous) of abdominal wall, initial encounter; K04.7 Periapical abscess without sinus; S00.462A Insect bite (nonvenomous) of left ear, initial encounter; E87.6 Hypokalemia; W57.XXXA Bitten or stung by nonvenomous insect and other nonvenomous arthropods, initial encounter; E83.42 Hypomagnesemia; F17.210 Nicotine dependence, cigarettes, uncomplicated; R01.1 Cardiac murmur, unspecified; B95.61 Methicillin susceptible Staphylococcus aureus infection as the cause of diseases classified elsewhere; F17.290 Nicotine dependence, other tobacco product, uncomplicated; Z86.79 Personal history of other diseases of the circulatory system
CPT/HCPCS: 36410; 36415; 80048; 80053; 80307; 84145; 85027; 85652; 87040; 87077; 87637; 87798; 93005; 96361; 96365; 96367; 99285; J1650; 71045; 80202; 81003; 81015; 83605; 83735; 84484; 84703; 85025; 85379; 86140; 86618; 87186; 93010; 93306; 99222; 99232; 99233; 99239; J0131; J0690; J2543; J2700; J3480; J3490

== ENCOUNTER 2022-01-19 17:11 | Outpatient (REF) | payer MEDICAID, SELFPAY ==
[2022-01-19 17:50] LABS: Abs Immature Grans 0.06 10^3/uL (0.0-0.06); Absolute Basophil Count 0.05 10^3/uL (0.0-0.2); Absolute Eosinophil Count 0.13 10^3/uL (0.0-0.7); Absolute Lymphocyte Count 2.82 10^3/uL (1.2-3.4); Absolute Monocyte Count 0.69 10^3/uL (0.1-0.8); Absolute Neutrophil Count 6.96 10^3/uL (1.2-6.7); Basophils % 0.5; Eosinophils % 1.2; HGB 13.5 g/dL (11.2-15.7); Immature Grans % 0.6; Lymphocytes % 26.3; MCH 31.1 pg (27.0-33.0); MCHC 34.6 % (32.0-36.0); MCV 90 fL (80-95); MPV 9.7 fL (8.0-11.0); Monocytes % 6.4; Platelet Count 437 10^3/uL (130-400); RBC 4.34 10^6/uL (3.93-5.22); RDW 12.6 % (11.7-14.6); RDW-SD 41.7 fL; WBC 10.71 10^3/uL (4.4-10.8)
[2022-01-19 17:52] LABS: ESR 13 mm/hr (0-20)
[2022-01-19 17:55] LABS: Anion Gap 6.3 mmol/L (3-11); BUN 11 mg/dL (7-18); C-Reactive Protein 0.55 mg/dL (0.0-0.3); CO2 30.7 mmol/L (21.0-32.0); CREATININE 0.8 mg/dL (0.55-1.02); Calcium 8.9 mg/dL (8.5-10.1); Chloride 106 mmol/L (98-107); Glucose 119 mg/dL (74-106); Potassium 3.8 mmol/L (3.5-5.1); Sodium 143 mmol/L (136-145)
== END 2022-01-19 17:12 | disposition home or self-care (01) ==
LOC: LBN 17:11
PROVIDERS: PCP Family Medicine; Visit Provider Family Medicine
DX: R78.1 Finding of opiate drug in blood (principal)
CPT/HCPCS: 80048; 85652; 85025; 86140

== ENCOUNTER 2022-01-26 12:43 | Outpatient (REF) | payer MEDICAID, SELFPAY ==
[2022-01-26 16:23] LABS: Abs Immature Grans 0.02 10^3/uL (0.0-0.06); Absolute Basophil Count 0.07 10^3/uL (0.0-0.2); Absolute Eosinophil Count 0.12 10^3/uL (0.0-0.7); Absolute Monocyte Count 0.57 10^3/uL (0.1-0.8); Absolute Neutrophil Count 4.97 10^3/uL (1.2-6.7); Basophils % 0.9; Eosinophils % 1.5; HCT 39.7 % (36.0-46.0); HGB 12.8 g/dL (11.2-15.7); Immature Grans % 0.3; Lymphocytes % 25.8; MCH 30.5 pg (27.0-33.0); MCHC 32.2 % (32.0-36.0); MCV 95 fL (80-95); MPV 9.6 fL (8.0-11.0); Monocytes % 7.4; Neutrophils % 64.1; Platelet Count 411 10^3/uL (130-400); RDW-SD 44.8 fL; WBC 7.75 10^3/uL (4.4-10.8)
[2022-01-26 17:12] LABS: ESR < 1 mm/hr (0-20)
== END 2022-01-26 12:44 | disposition home or self-care (01) ==
LOC: LBN 12:43
PROVIDERS: PCP Family Medicine; Visit Provider Family Medicine
DX: R78.81 Bacteremia (principal)
CPT/HCPCS: 80048; 85652; 85025; 86140

== ENCOUNTER 2022-01-27 15:57 | Outpatient (REF) | payer MEDICAID, SELFPAY ==
[2022-01-27 15:40] LABS: BUN 8 mg/dL (7-18); C-Reactive Protein 0.33 mg/dL (0.0-0.3); CREATININE 0.7 mg/dL (0.55-1.02); Calcium 8.5 mg/dL (8.5-10.1); Chloride 101 mmol/L (98-107); Glucose 122 mg/dL (74-106); Sodium 140 mmol/L (136-145)
[2022-01-27 18:34] LABS: Potassium 2.9 mmol/L (3.5-5.1)
== END 2022-01-27 15:58 | disposition home or self-care (01) ==
LOC: LBO 15:57
PROVIDERS: PCP Family Medicine; Visit Provider Family Medicine
DX: R78.81 Bacteremia (principal); R79.82 Elevated C-reactive protein (CRP)
CPT/HCPCS: 80048; 86140